=== PATIENT | female | born 1985 | race Hispanic/Latino ===

== ENCOUNTER 2020-06-08 17:14 | Outpatient (CLI) | payer BC, SELFPAY ==
[2020-06-08 17:43] LABS: Hemoglobin 11.8 g/dL (12.0-15.0); Mean Platelet Volume 10.4 fl (7.4-10.4); Platelet Count Result 261 k/mm3 (150-375)
[2020-06-08 18:07] LABS: Hemoglobin A1C 4.6 % (<5.7)
[2020-06-08 18:37] LABS: HIV 1/2 Ab P24 Ag Result Negative (Negative)
[2020-06-08 19:36] LABS: Hepatitis B Surface Antibody > 1000.00 s/c; Hepatitis C Virus Antibody Negative (Negative)
[2020-06-08 19:41] LABS: Hepatitis B Surface Anti Res Positive
[2020-06-09 07:11] LABS: Rapid Plasma Reagin Non-Reactive (NonReactive)
[2020-06-09 17:57] LABS: Rubella IgG Antibody 66.3 IU/ML
== END 2020-06-08 17:15 | disposition home or self-care (01) ==
LOC: ANHLAB 17:17
PROVIDERS: PCP Physician Assistant; Visit Provider Obstetrics & Gynecology
DX: Z36.89 Encounter for other specified antenatal screening (principal); Z3A.00 Weeks of gestation of pregnancy not specified
CPT/HCPCS: 36415; 83036; 85014; 85018; 85049; 86592; 86703; 86706; 86762; 86803; 86850; 86900; 86901; G0432

== ENCOUNTER 2020-12-05 11:20 | Outpatient (CLI) | payer BC, SELFPAY ==
[2020-12-05 11:49] LABS: Hematocrit 36.3 % (37.0-47.0); Hemoglobin 12.1 g/dL (12.0-15.0); Mean Corpuscular HGB Conc 33.3 g/dl (32-36); Mean Corpuscular Hemoglobin 27.3 pg (26-34); Mean Corpuscular Volume 81.8 fl (80-100); Mean Platelet Volume 11.8 fl (7.4-10.4); Platelet Count Result 240 k/mm3 (150-375); Red Blood Count 4.44 M/mm3 (4.2-5.4); Red Cell Distribution Width 15.2 % (11.5-14.5); White Blood Count 7.3 K/mm3 (4.5-10.0)
[2020-12-06 10:05] LABS: Rapid Plasma Reagin Non-Reactive (NonReactive)
== END 2020-12-05 11:21 | disposition home or self-care (01) ==
LOC: ANHLAB 11:22
PROVIDERS: PCP Physician Assistant; Visit Provider Obstetrics & Gynecology
DX: Z01.818 Encounter for other preprocedural examination (principal)
CPT/HCPCS: 36415; 85027; 86592; 86850; 86900; 86901

== ENCOUNTER 2020-12-06 05:42 | Inpatient (IN) | payer BC, SELFPAY ==
--- NOTE | 2020-11-14 15:55 | PC.NURSE ---
VERIFIED WITH OR SCHEDULE AND PATIENT -C/S ON 12/06/20 AT 0730--PATIENT STATES SHE IS ALSO HAVING A TUBAL LIGATION--CONSENT SIGNED PATIENT GIVEN REQUISITION FOR LAB DRAW ON 12/05/20
[2020-12-06] VITALS (67 sets, daily range): BP systolic 95–142; BP diastolic 34–99; PULSE 53–140; RESP 15–20; TEMP 36.1–36.8; O2SAT 95–100; BMI 39.1
--- NOTE | 2020-12-06 06:38 | P.PNAN_ITS ---
Anes - Initial Pre Proc Eval Procedure: Operation Date: 12/06/20 07:30 Proposed Procedures p Repeat Section - Mayte Galindo MD Date/Time: 12/06/20 06:38 Surgeon: Mayte Galindo MD Pre Op Diagnosis: Cesearn Section Patient Data Age: 35 Gender: F Height: 1.45 m Weight: 82 kg Last Vital Signs Pulse 73 12/06/20 06:22 BP 124/80 12/06/20 06:22 Allergies Allergy/AdvReac Type Severity Reaction Status Date / Time No Known Allergies Allergy Verified 11/14/20 15:40 Home Medications Medication Instructions Recorded Confirmed Type Unisom (diphenhydramine) 11/14/20 History prenat.vits,magaly,[id number]-[id number]-krldh 1 tablet PO DAILY 11/14/20 11/14/20 History [ #2] Patient hx anesthesia problems: none Family hx anesthesia problems: none PENDING SALE TO [facility] Past Medical History Medical History (Updated 12/05/20 @ 12:16 by Micky Allan DO) GDM (gestational diabetes mellitus) Family History Family History (Updated 11/14/20 @ 15:43 by Sharla Fritz RN) Other No pertinent family history Social History Social History Substance use: never Spiritual care concerns: No Anes - Eval Final PreProcedure Day of Procedure 12/06/20 06:38 Patient weight: obese Heart: regular rate and rhythm Lungs: clear to auscultation and normal air movement Airway: Mallampati scale class II Neurological: alert and oriented Last oral intake: >/= 8 hours ASA classification: III Emergent: no Anesthetic plan: proceed Anesthesia type and monitoring: regional spinal and standard monitoring Informed Consent: The patient's anesthetic plan and its attendant risks and benefits were discussed with the patient/family/POA. Questions were solicited and answers provided to the satisfaction of the patient/family/POA.
[2020-12-06] MEDS: LACTATED RINGERS 1,000 ML 125 ML IV CONT (07:00)
--- NOTE | 2020-12-06 07:39 | WPDHPUPDATE1 ---
History and Physical Update Update Date/Time: 12/06/20 07:39 History and Physical has been reviewed, including an updated exam of the patient. There are NO changes in the patient's condition. Risks, benefits, and alternatives have been discussed and questions answered. Patient agrees to proceed with procedure.
--- NOTE | 2020-12-06 07:40 | PM.IMHP ---
H&P: HPI History of Present Illness Date/Time: 12/06/20 07:40This patient is a 35-year-old female multipara at term with previous delivery unwanted fertility. We have agreed to perform delivery and tubal ligation. Patient understands the surgery has risk and that injuries may occur. She understands that injuries could result in hospitalization, more surgery, severe illness, and More surgery. She denies any nausea, vomiting, fever, chills. She denies any contractions or loss of fluid. she denies any chest pain or shortness of breath. Chief Complaint: Term , unwanted fertility Review of Systems Constitutional: Constitutional: Reports no additional constitutional complaints, Denies fatigue, Denies headache(s), Denies lethargy and Denies weakness Eyes: Eyes: Reports no additional eye complaints, Denies blurry vision and Denies photophobia ENT: Reports as per HPI, Denies headache(s) and Denies neck pain Cardiovascular: Cardiovascular: Denies chest pain, Denies diaphoresis, Denies leg edema, Denies palpitations and Denies dyspnea Respiratory: Respiratory: Denies hemoptysis, Denies dyspnea and Denies wheezing Gastrointestinal: Gastrointestinal: Denies abdominal pain, Denies melena, Denies bloating, Denies hematochezia, Denies nausea and Denies vomiting Genitourinary: Genitourinary: Reports no additional female genitourinary complaints Musculoskeletal: Musculoskeletal: Denies joint swelling, Denies neck pain, Denies numbness and Denies stiffness Neurologic: Denies Abnormal speech present, Denies confusion, Denies headache(s), Denies numbness and Denies weakness Psychiatric: Psychiatric: Denies anxiety, Denies confusion, Denies depression, Denies homicidal ideation and Denies suicidal ideation Endocrine: Endocrine: Denies fatigue and Denies palpitations Allergic/Immunologic: Allergic/Immunologic: Denies wheezing PMFSH Past Medical History Medical History (Updated 12/06/20 @ 07:43 by Mayte Galindo MD) GDM (gestational diabetes mellitus) Family History Family History (Updated 11/14/20 @ 15:43 by Sharla Fritz RN) Other No pertinent family history Social History Social History Substance use: never Spiritual care concerns: No Meds Home Medications and Allergies Home Medications Medication Instructions Recorded Confirmed Type Unisom (diphenhydramine) 11/14/20 History prenat.vits,magaly,twz-awmu-anfde 1 tablet PO DAILY 11/14/20 11/14/20 History [ #2] Allergies Allergy/AdvReac Type Severity Reaction Status Date / Time No Known Allergies Allergy Verified 11/14/20 15:40 Vital Signs Vital Signs - 24 hr 12/06/20 06:22 Pulse Rate 73 Blood Pressure 124/80 Exam Const: General: healthy appearing, comfortable and no acute distress; No confusion Orientation/consciousness: No confusion Eyes: Direct Ophthalmoscopy: No photophobia Resp: Auscultation: clear to auscultation bilaterally, no rales, no rhonchi and no wheezes Cardio: Rate: regular rate Heart sounds: no click, no murmurs and no rubs GI: Inspection: non-distended GI Palp: No abdominal tenderness Auscultation: normal bowel sounds Neuro: General: No confusion Speech: No Abnormal speech present Extrem: General: normal to inspection, no pedal edema and no calf tenderness Assessment and Plan Assessment and plan (1) Previous delivery, antepartum condition or complication: Code(s): O34.219 - Maternal care for unspecified type scar from previous delivery Status: Acute (2) Encounter for female sterilization procedure: Code(s): Z30.2 - Encounter for sterilization Status: Acute Assessment and Plan: this patient is a 35-year-old multiparous with previous delivery . she is term. She has unwanted fertility. We have agreed to perform repeat with tubal ligation. She understands risks, benefits, and alternatives. She has
--- NOTE | 2020-12-06 08:47 | W.PM.PROC2 ---
Procedure Note - Detailed Date of Procedure 12/06/20 Pre-op Diagnosis Previous Cesearn Section, unwanted fertility Post-op Diagnosis same Procedure Performed Low-transverse section, Bilateral Tubal Ligation Surgeon Mayte Galindo MD Anesthesia spinal Indications previous , term , unwanted fertility Findings Normal gestational maternal anatomy, above average size infant, normal Apgars. Description of Procedure The patient was taken the operating room. She was prepped and draped in dorsal supine position with a leftward tilt. This was done after spinal anesthetic was applied. A low-transverse skin incision was made and carried down till of the fascia with the knife. The fascial incision was made with the knife. The fascial incision was extended laterally with Mccormack scissors. The fascia was tented upward superiorly and inferiorly the rectus muscles were dissected off bluntly. The rectus muscles were the midline. The preperitoneal fat and peritoneum were dissected open bluntly at the superior aspect of the rectus muscles. The peritoneal incision was extended superior and inferior with good position of bladder. The uterine incision was made with a scalpel down to the level of the amniotic cavity. The amniotic cavity was entered bluntly. The infant was delivered. The cord was clamped and cut and the was handed off to waiting pediatric staff. Cord bloods were obtained. The placenta was removed manually. The uterus was exteriorized. The uterus was cleared of all clots, debris and membranes. The uterus was closed in 0 Vicryl running lock fashion. An imbricating over a was placed along the incision line as well. the right fallopian tube was grasped in the ampullary region with a Cordell. The mesosalpinx was cauterized and a window was created in the same area adjacent to the tube. The proximal distal ends of the isolated were ligated with 0 Vicryl. The ligated segment was transected and. The cut ends of the tube were cauterized. The contralateral tube was ligated in the same fashion The uterus was returned to the abdomen. The gutters were cleared of all clots and debris. The fascia was closed with 0 Vicryl running fashion. The subcutaneous tissue was irrigated pinpoint bleeders were cauterized. The skin was closed with subcuticular absorbable mai. The skin incision line was covered with glue. The patient tolerated the procedure well. She has taken recovery room in stable condition. Sponge lap and needle counts were correct x2. Estimated Blood Loss 350 Complications No immediate complications Condition stable Disposition PACU
[2020-12-06] MEDS: MORPHINE SULFATE (*CRX) 2 MG/ML INJ IV PUSH ×2 (09:06→10:26)
[2020-12-06] MEDS: OXYTOCIN 30 UNITS/NS 500 ML 30 UNITS/500 ML BAG 125 UNITS IV CONT (09:25)
[2020-12-06] MEDS: ONDANSETRON INJ 4 MG/2 ML VIAL IV PUSH ×2 (09:27→15:32)
--- NOTE | 2020-12-06 10:07 | LDADM ---
This patient, Rosamaria Fields, was admitted to Labor/Delivery/Recovery 120 on 12/06/20 at 05:42. Plans for scheduled section, pain management and were discussed with patient. Patient/family oriented to hospital policies and general routines including ID bracelet, bed and alarms, visiting hours, pain management, procedures, bathroom and other care routines, personal items, smoking policy, room service/diet and guest tray routines, security routines, and visiting hours. Patient/Family are encouraged to report perceived risks to care and to ask questions if they do not understand what they are told or what they should do. See OBIX for further documentation.
[2020-12-06] MEDS: KETOROLAC 30 MG/ML VIAL (*BKC) IV PUSH (12:18)
--- NOTE | 2020-12-06 12:45 | PC.NURSE ---
Mother called out for assist with feeding., reporting fed well for first feeding. is able to freely thrust tongue past gum ridge and flange both lips. Skin is intact on both nipples, no redness and bruising noted. Reviewed feeding cues, frequencies, duration of feedings, feeding elimination flow sheet, and signs of adequate intake. Demonstrated stimulation techniques to wake infant for feeding. Assisted with infant to breast. Reviewed positioning/alignment in cross cradle, holding breast in ?U? hold and guided asymmetrical latch on. Discussed rational for each. able to latch correctly. nursed eagerly, with steady draws and frequent swallowing noted. Suggested mother stimulate while feeding to increase stimulate, increase intake and to assist with maintaining deep latch. Reviewed signs of a correct latch, effective nursing and suck swallow ratio. Infant was able to maintain latch without discomfort to mother. Demonstrated how to adjust latch more deeply while feeding if needed. Nipple care reviewed of lanolin after feedings, warm compresses as needed. Instructed mother to call out for RN assistance if she is unable to latch infant for feeding or she has discomfort with nursing.
[2020-12-06] MEDS: DEXTROSE 5%/0.45% SOD CHL 1,000 ML 125 ML IV CONT (14:11)
[2020-12-06] MEDS: KCL 20 MEQ/D5/0.45% SOD CHL 1,000 ML 125 ML IV CONT (22:40)
[2020-12-06] MEDS: ZOLPIDEM TARTRATE (*CRX) 5 MG TABLET PO (22:40)
[2020-12-07] MEDS: KETOROLAC 30 MG/ML VIAL (*BKC) IV PUSH (01:08)
[2020-12-07 03:00] VITALS: BP 115/52; PULSE 82; RESP 16; TEMP 36.8; O2SAT 97
[2020-12-07] MEDS: HYDROcodone/acetaminophen (*CRX) 5-325 MG TABLET 1 TAB PO ×6 (05:53→23:11)
[2020-12-07 06:06] LABS: Basophils Percent Auto 0.3 % (0.2-1.2); Eosinophils Absolute Auto 0.1 K/mm3 (0-0.3); Eosinophils Percent Auto 0.6 % (0-4.4); Hematocrit 28.1 % (37.0-47.0); Hemoglobin 9.2 g/dL (12.0-15.0); Immature Granulocyte Absolute 0.05 K/mm3 (0.00-0.031); Immature Granulocyte Percent A 0.4 % (0-0.5); Lymphocytes Absolute Auto 1.91 K/mm3 (0.9-3.2); Lymphocytes Percent Auto 16.1 % (18.3-44.2); Mean Corpuscular HGB Conc 32.7 g/dl (32-36); Mean Corpuscular Hemoglobin 27.4 pg (26-34); Mean Corpuscular Volume 83.6 fl (80-100); Mean Platelet Volume 12.3 fl (7.4-10.4); Monocytes Absolute Auto 1.2 K/mm3 (0.1-0.6); Monocytes Percent Auto 10.4 % (2.6-8.5); Neutrophils Absolute Auto 8.6 K/mm3 (1.3-6.7); Neutrophils Percent Auto 72.2 % (45.5-73.1); Platelet Count Result 190 k/mm3 (150-375); Red Blood Count 3.36 M/mm3 (4.2-5.4); Red Cell Distribution Width 15.4 % (11.5-14.5); White Blood Count 11.9 K/mm3 (4.5-10.0)
--- NOTE | 2020-12-07 07:37 | PM.OBPNVD ---
OB - PN: Subj Subjective Date/time seen: 12/07/20 07: OB - PN: Obj Data Labs CBC & Chem 7: 12/07/20 04:45 Labs: Laboratory Results - last 24 hr 12/07/20 04:45 WBC 11.9 H RBC 3.36 L Hgb 9.2 L Hct 28.1 L MCV 83.6 MCH 27.4 MCHC 32.7 RDW 15.4 H Plt Count 190 MPV 12.3 H Immature Gran % (Auto) 0.4 Neut % (Auto) 72.2 Lymph % (Auto) 16.[address] [place] % (Auto) 10.4 H Eos % (Auto) 0.6 Baso % (Auto) 0.3 Lymph # (Auto) 1.91 [place] # (Auto) 1.2 H Eos # (Auto) 0.1 Baso # (Auto) 0.0 Abs Immat Gran (auto) 0.05 H Absolute Neuts (auto) 8.6 H Absolute Nucleated RBC 0.0 Nucleated RBC % 0.0 OB - PN A/P Plan day: 1 Plan: routine care Time Spent With Patient Time: Total time spent is greater than 50% in coordination of care (as documented) at patient's floor/unit and/or counseling patient: Review of Systems Review of Systems: All systems reviewed & are unremarkable except as noted in HPI and below Exam Narrative: Exam Narrative: Incision CDI Const: General: cooperative Limitations: no limitations
--- NOTE | 2020-12-07 07:47 | WPDANLDNPN2 ---
Anes-Prog Note L&D-Neuraxial Date/Time: 12/07/20 07:47 Neuraxial medications: intrathecal PF morphine Opiod-related complaints: none Patient feedback: Patient satisfied with post-operative pain management.
--- NOTE | 2020-12-07 07:48 | WPDANLDPN2 ---
Anes-Prog Note L&D Date/Time: 12/07/20 07:48 Comfortable throughout: section Neuraxial method: spinal Epidural/Spinal procedure site: clean & non-tender Neuro status: Neuro function grossly intact. Cardiovascular status: normal Respiratory status: normal Airway patency: baseline Mental status: baseline Post-Op hydration status: normal Vital Signs: Last Vital Signs Temp 36.8 C 12/07/20 03:00 Pulse 82 12/07/20 03:00 Resp 16 12/07/20 03:00 BP 115/52 L 12/07/20 03:00 Pulse Ox 97 12/07/20 03:00 Pain score (VAS): 0 I/O: Intake & Output 12/06/20 12/06/20 12/07/20 15:59 23:59 07:59 Intake Total 1260 2000 Output Total 250 2050 625 Balance 1010 -2050 1375 Post-procedural complaints: none Patient feedback: Patient satisfied with anesthetic care.
[2020-12-07 08:00] VITALS: BP 115/52; BP 116/73; PULSE 73; PULSE 82; RESP 16; RESP 18; TEMP 36.8; O2SAT 97
[2020-12-07] MEDS: SIMETHICONE 80 MG TAB.CHEW PO ×3 (08:47→17:10)
[2020-12-07] MEDS: POLYSACCHARIDE IRON COMPLEX 150 MG CAPSULE PO ×2 (08:48→17:11)
[2020-12-07] MEDS: IBUPROFEN 600 MG TABLET PO ×3 (08:48→23:11)
[2020-12-07] MEDS: MULTIVIT/MIN/PREN/FOL AC/IRON TABLET 1 TAB PO (08:48)
[2020-12-07] MEDS: DOCUSATE SODIUM 100 MG CAPSULE PO ×2 (08:48→17:11)
--- NOTE | 2020-12-07 09:45 | PC.NURSE ---
Mother called out for assist with feeding. Infant is sleepy due to circumcision. Demonstrated stimulation techniques to wake infant for feeding. Assisted with to breast. Reviewed positioning/alignment in cross cradle, holding breast in ?U? hold and guided asymmetrical latch on. Discussed rational for each. able to latch correctly. nursed eagerly, with steady draws and frequent swallowing noted. Suggested mother stimulate while feeding to increase stimulate, increase intake and to assist with maintaining deep latch. Reviewed signs of a correct latch, effective nursing and suck swallow ratio. was able to maintain latch without discomfort to mother. Nipple care reviewed of lanolin after feedings, warm compresses as needed. Instructed mother to call out for RN assistance if she is unable to latch infant for feeding or she has discomfort with nursing.
[2020-12-07] MEDS: ZOLPIDEM TARTRATE (*CRX) 5 MG TABLET PO (23:11)
[2020-12-08] MEDS: HYDROcodone/acetaminophen (*CRX) 5-325 MG TABLET 1 TAB PO ×3 (03:47→11:44)
[2020-12-08] MEDS: IBUPROFEN 600 MG TABLET PO ×2 (05:02→11:43)
[2020-12-08 08:00] VITALS: BP 116/73; BP 135/72; PULSE 63; RESP 18; RESP 20; TEMP 36.6; O2SAT 97
--- NOTE | 2020-12-08 08:00 | PC.NURSE ---
Patient was given the opportunity to view the discharge video Mother & Baby Care, The First Two Weeks and to ask questions. Patient declined viewing the video and has been given the mother/baby guide for home reference.
--- NOTE | 2020-12-08 08:09 | PM.GYNPNOP ---
HAIRSPRING STUDDER - A/P Postoperative Procedures: Procedures Operation Date: 12/06/20 07:30 Actual Procedure Side Surgeon p Repeat Section With Bilateral Tubal Ligation Mayte Galindo MD Time Spent With Patient Time: Total time spent is greater than 50% in coordination of care (as documented) at patient's floor/unit and/or counseling patient: Time with patient: 15 - 25 minutes HAIRSPRING STUDDER- PN:Subj Post-Op Subjective Date/time seen: 12/08/20 08:09 Exam Const: General: comfortable, no acute distress and alert Resp: Effort & Inspection: normal respiratory effort Auscultation: no crackles, no rales and no rhonchi Cardio: Rate: regular rate Heart sounds: no click, no murmurs and no rubs GI: Inspection: non-distended GI Palp: No Tenderness to palpation present (GI) Auscultation: normal bowel sounds Other: Incision - CDI Extrem: General: normal to inspection, no pedal edema and no calf tenderness HAIRSPRING STUDDER - PN: Obj Data Intake/Output Intake/Output: Intake & Output 12/05/20 12/06/20 12/07/20 12/08/20 23:59 23:59 23:59 23:59 Intake Total 1260 2800 Output Total 2300 825 Balance -1040 1975 Meds/Results Medications: Active Medications Generic Name Dose Route Start Last Admin Trade Name Freq PRN Reason Stop Dose Admin Acetaminophen 650 mg 12/06/20 11:01 Acetaminophen 325 Mg Tablet PO Q6H PRN Mild Pain (1-3) Hydrocodone Bitart/Acetaminophen 1 tab 12/06/20 11:01 12/08/20 03:47 Hydrocodone/Acetaminophen (*Crx) 5-325 Mg Tablet PO 1 tab Q3H PRN Administration Moderate Pain (4-6) Hydrocodone Bitart/Acetaminophen 1 tab 12/06/20 11:01 Hydrocodone/Acetaminophen (*Crx) 10-325 Mg Tablet PO Q3H PRN Pain Rated 7-10 Bisacodyl 10 mg 12/06/20 11:01 Bisacodyl 10 Mg Suppository RECTAL ONCE PRN Constipation Docusate Sodium 100 mg 12/06/20 11:01 12/07/20 17:11 Docusate Sodium 100 Mg Capsule PO 100 mg BID SIXTO Administration Emollient Ointment 1 applic 12/06/20 11:01 Lanolin (Lansinoh) 7.5 Gm Cream TOPICAL PRN PRN Sore Nipples Dextrose/Sodium Chloride 1,000 mls @ 125 mls/hr 12/06/20 11:01 12/06/20 14:11 Dextrose 5% Sodium Chloride 0.45% IV CONT 125 mls/hr .Q8H SIXTO Administration Potassium Chloride/Dextrose/Sod Cl 1,000 mls @ 125 mls/hr 12/06/20 11:01 12/06/20 22:40 Kcl 20 Meq/D5/0.45% Sod Chl IV CONT 125 mls/hr .Q8H SIXTO Administration Ibuprofen 600 mg 12/06/20 11:01 12/08/20 05:02 Ibuprofen 600 Mg Tablet PO 600 mg Q6H PRN Administration Cramping Ketorolac Tromethamine 30 mg 12/06/20 11:01 12/07/20 01:08 Ketorolac 30 Mg/Ml Vial (*Bkc) IV PUSH 30 mg Q6H PRN Administration Pain Rated 4-6 Naloxone HCl 0.1 mg 12/06/20 11:01 Naloxone Hcl 0.4 Mg/Ml Vial IV PUSH Q2M PRN Opiate Reversal Ondansetron HCl 4 mg 12/06/20 11:01 12/06/20 15:32 Ondansetron Inj 4 Mg/2 Ml Vial IV PUSH 4 mg Q6H PRN Administration Nausea Polysaccharide Iron Complex 150 mg 12/06/20 17:00 12/07/20 17:11 Polysaccharide Iron Complex 150 Mg Capsule PO 150 mg BIDWM SIXTO Administration Vit/Calcium/Iron/Folic Ac 1 tab 12/06/20 11:01 12/07/20 08:48 Multivit/Min/Pren/Fol Ac/Iron Tablet PO 1 tab DAILY SIXTO Administration Simethicone 80 mg 12/06/20 11:01 12/07/20 17:10 Simethicone 80 Mg Tab.Chew PO 80 mg Q2H PRN Administration Gas Zolpidem Tartrate 5 mg 12/06/20 11:01 12/07/20 23:11 Zolpidem Tartrate (*Crx) 5 Mg Tablet PO 5 mg HS PRN Administration Insomnia Labs CBC & Chem 7: 12/07/20 04:45
--- NOTE | 2020-12-08 08:11 | PM.OBDSVD ---
DS: Admitting Diagnosis Admitting Diagnosis term DS: Discharge Diagnosis Discharge Diagnosis (1) Previous delivery, antepartum condition or complication: Code(s): O34.219 - Maternal care for unspecified type scar from previous delivery Status: Acute (2) Encounter for female sterilization procedure: Code(s): Z30.2 - Encounter for sterilization Status: Acute OB - DS: Summary OB Procedures : NST and Ultrasound OB Procedures Intrapartum: and Tubal ligation OB Procedures: : None Peripartum Data Infant Delivery Method: Section Procedures: Procedures Operation Date: 12/06/20 07:30 Actual Procedure Side Surgeon p Repeat Section With Bilateral Tubal Ligation Mayte Galindo MD Time Spent with Patient Time attestation: Total time spent providing and/or coordinating discharge services: DS: Data Data Completed and Pending Pending studies at discharge: Pending at discharge 12/06/20 09:22 Surgical [PTH] Routine Discharge Plan Discharge Discharging Clinician: Mayte Galindo Patient Disposition: Home, Self-Care Activity: pelvic rest Diet: as tolerated Patient Instructions: Antibiotic Form Stand Alone Forms: General Discharge Information Follow-up/Referrals: Mayte Galindo MD [Physician] - Discharge Medications: New hydrocodone-acetaminophen 5-325 mg tablet 1 - 2 tablet PO Q4H PRN (Reason: pain) Qty: 25 RF: 0 Continued #2 Tablet 1 tablet PO DAILY RF: 0 Unisom (diphenhydramine) RF: 0 Date of admission: 12/06/20 05:42 Primary Care Provider: Claribel Augustin Admitting Provider: Mayte Galindo Attending physician on admission: Mayte Galindo Condition: Stable
[2020-12-08] MEDS: POLYSACCHARIDE IRON COMPLEX 150 MG CAPSULE PO (08:32)
[2020-12-08] MEDS: DOCUSATE SODIUM 100 MG CAPSULE PO (08:32)
[2020-12-08] MEDS: MULTIVIT/MIN/PREN/FOL AC/IRON TABLET 1 TAB PO (08:33)
[2020-12-08] MEDS: SIMETHICONE 80 MG TAB.CHEW PO ×2 (08:33→11:43)
--- NOTE | 2020-12-08 09:20 | PC.NURSE ---
Mother is able to independently latch infant with appropriate positioning/alignment. She denies any nipple discomfort, is feeding as required and waking to feed if needed. has had at least 8 effective feedings followed by supplementation by mother's choice in the past 24 hours, and is currently meeting outcomes for weight, output, jaundice and feeding frequencies. Mother states she feels confident to continue effective /bottle at home. Mother plans to decrease supplement once her milk is in. Reviewed transition to breast milk, signs of adequate intake, and engorgement/relief. Instructed to call ICP if intake/output less than required. Reviewed regular medications mother is taking. Information provided per Chen. Reviewed community resources on the [facility] website and in the Mom/Baby guide. Information on outpatient services provided. Mother has no further questions at this time.
--- NOTE | 2020-12-08 10:55 | PC.NURSE ---
Self care and infant care discharge instructions given including follow up visit date and time. Pt verbalized understanding. No questions or concerns voiced.
[2020-12-09 10:27] VITALS: BP 139/64; PULSE 72; RESP 20; TEMP 37.3; O2SAT 100
== END 2020-12-08 12:38 | disposition home or self-care (01) | DRG 785 ==
LOC: ANHLDR 05:47 → ANHOB2 11:06
PROVIDERS: Admitting Provider Obstetrics & Gynecology; PCP Physician Assistant; Visit Provider Obstetrics & Gynecology
PROC: 10D00Z1 Extraction of Products of Conception, Low, Open Approach (ICD-10-PCS; CPT 59514; principal; 2020-12-06 07:30)
DX: O34.211 Maternal care for low transverse scar from previous cesarean delivery (principal); Z37.0 Single live birth; Z3A.39 39 weeks gestation of pregnancy; O24.429 Gestational diabetes mellitus in childbirth, unspecified control; Z30.2 Encounter for sterilization
CPT/HCPCS: 36415; 85025; 85027; 86592; 86850; 86900; 86901; 88302; 88307; A9270; J0131; J1885; J2270; J2274; J2405; J2590; J3480; J7120